=== PATIENT | male | born 1995 | race Caucasian/White ===

== ENCOUNTER 2019-01-25 14:45 | Inpatient (IN) | payer OTHER ==
--- NOTE | 2019-01-25 14:51 | EDPHY ---
H & P Time Seen by Provider: 01/25/19 14:51 Constitutional: Initial Vital Signs Temperature (C) 36.4 C 01/25/19 14:54 Heart Rate 63 01/25/19 14:54 Respiratory Rate 16 01/25/19 14:54 Blood Pressure 113/57 L 01/25/19 14:54 O2 Sat (%) 94 01/25/19 14:54 O2 Delivery Mode Room Air Allergies/Adverse Reactions: No Known Allergies Allergy (Unverified 01/25/19 14:53) Home Medications: Medication Instructions Recorded NK [No Known Home Meds] 01/25/19 Medical Decision Making ED Course/Re-evaluation: CHIEF COMPLAINT: Psychiatric evaluation HISTORY OF PRESENT ILLNESS: The patient is a 23 y/o male arriving via private vehicle for suicidal ideations. For the last 2 years he has had intermittent thought of suicide. The patient presented to [facility] where he expressed the suicidal ideations, and they placed him on a M1 hold. He has never sought treatment for his depression and has never attempted suicide. He denies abusing illicit drugs and last used marijuana 5 months ago. No fever, headache, body aches, lightheadedness, chest pain, heart palpitations, shortness of breath, cough, abdominal pain, urinary or bowel complaints, numbness, paresthesias. REVIEW OF SYSTEMS: A comprehensive 10 system review of systems is otherwise negative aside from elements mentioned in the history of present illness and medical decision making. PHYSICAL EXAM: General Appearance: Alert, well hydrated, appropriate, and non-toxic appearing. Head: Atraumatic without scalp tenderness or obvious injury Eyes: Pupils equal, round, reactive to light and accommodation, EOMI, no trauma , no injection. Ears: Clear bilaterally, no perforation, normal landmarks Nose: Atraumatic, no rhinorrhea, clear. Throat: There is no erythema or exudates, no lesions, normal tonsils, mucus membranes moist. Neck: Supple, 2+ carotid upstroke, nontender, no lymphadenopathy. Respiratory: No retractions, no distress, no wheezes, and no accessory muscle use. Lungs are clear to auscultation bilaterally. Cardiovascular: Regular rate and rhythm, no murmurs, rubs, or gallops. Bilateral carotid, radial, dorsalis pedis, and posterior tibial pulses intact. Good capillary refill all extremities. Gastrointestinal: Abdomen is soft, nontender, non-distended, no masses, no rebound, no guarding, no peritoneal signs. Musculoskeletal: Normal active ROM of all extremities, atraumatic. Neurological: Alert, appropriate, and interactive. The patient has normal DTRs and non-focal cranial nerves, motor, sensory, and cerebellar exam. Skin: No rashes, good turgor, no nodules on palpation. Psych: Flat affect but cooperative. Expresses suicidal ideation. Denies homicidal ideations. Denies hallucinations. Past medical history: Denies Past surgical history: Denies Family history: Denies Social history: Lives in [place], student at , single DIFFERENTIAL DIAGNOSIS: The differential diagnosis for the patient's depression included but was not limited to functional and major depression, situational depression, medication side effect, drugs, and alcohol abuse. MEDICAL DECISION MAKING: The patient is a 23 y/o male arriving via private vehicle for intermittent suicidal ideations for the last 2 years. The patient presented to [facility] today where he expressed the suicidal ideations, and they placed him on a M1 hold. On exam he has a flat affect, expresses suicidal ideations and is cooperative. Patient is in no acute distress and is hemodynamically stable. We are awaiting psychiatric team's evaluation. Patient has known history of psychiatric disorders and is here for evaluation. 2027: Patient has been accepted to [facility]. HAIL signed. - Data Points Laboratory Results: Laboratory Results 01/25/19 14:50 01/25/19 14:50 01/25/19 01/25/19 01/25/19 15:30 14:50 14:50 WBC 5.22 10^3/uL 10^3/uL (3.80-9.50) RBC 5.18 10^6/uL 10^6/uL (4.40-6.38) Hgb 16.0 g/dL g/dL (13.7-17.5) Hct 46.9 % % (40.0-51.0) MCV 90.5 fL fL (81.5-99.8) MCH 30.9 pg pg (27.9-34.1) MCHC 34.1 g/dL g/dL (32.4-36.7) RDW 11.1 % L % (11.5-15.2) Plt Count 183 10^3/uL 10^3/uL (150-400) MPV 11.3 fL fL (8.7-11.7) Neut % (Auto) 64.7 % % (39.3-74.2) Lymph % (Auto) 26.8 % % (15.0-45.0) Jay % (Auto) 7.9 % % (4.5-13.0) Eos % (Auto) 0.0 % L % (0.6-7.6) Baso % (Auto) 0.4 % % (0.3-1.7) Nucleat RBC Rel Count 0.0 % % (0.0-0.2) Absolute Neuts (auto) 3.38 10^3/uL 10^3/uL (1.70-6.50) Absolute Lymphs (auto) 1.40 10^3/uL 10^3/uL (1.00-3.00) Absolute Monos (auto) 0.41 10^3/uL 10^3/uL (0.30-0.80) Absolute Eos (auto) 0.00 10^3/uL L 10^3/uL (0.03-0.40) Absolute Basos (auto) 0.02 10^3/uL 10^3/uL (0.02-0.10) Absolute Nucleated RBC 0.00 10^3/uL 10^3/uL (0-0.01) Immature Gran % 0.2 % % (0.0-1.1) Immature Gran # 0.01 10^3/uL 10^3/uL (0.00-0.10) Sodium 139 mEq/L mEq/L (135-145) Potassium 4.0 mEq/L mEq/L (3.5-5.2) Chloride 105 mEq/L mEq/L (97-110) Carbon Dioxide 24 mEq/l mEq/l (22-31) Anion Gap 10 mEq/L mEq/L (6-14) BUN 15 mg/dL mg/dL (7-23) Creatinine 0.8 mg/dL mg/dL (0.7-1.3) Estimated GFR > 60 Glucose 83 mg/dL mg/dL (70-100) Calcium 10.1 mg/dL mg/dL (8.5-10.4) Salicylates < 1.0 mg/dL L mg/dL (2.0-20.0) Urine Opiates Screen NEGATIVE (NEGATIVE) Acetaminophen < 10 mcg/mL L mcg/mL (10-30) Urine Barbiturates NEGATIVE (NEGATIVE) Ur Phencyclidine Scrn NEGATIVE (NEGATIVE) Ur Amphetamine Screen NEGATIVE (NEGATIVE) U Benzodiazepines Scrn NEGATIVE (NEGATIVE) Urine Cocaine Screen NEGATIVE (NEGATIVE) U Marijuana (THC) Screen NEGATIVE (NEGATIVE) Ethyl Alcohol < 10 mg/dL mg/dL (0-10) Departure - Departure Disposition: [facility] IP Clinical Impression: Suicidal ideation Condition: Fair Report Scribed for: Rico Mccullough Report Scribed by: Katt Morataya Date of Report: 01/25/19 Time of Report: 14:53
[2019-01-25 15:08] LABS: PLATELET COUNT 183 10^3/uL (150-400)
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
--- NOTE | 2019-01-25 20:40 | ASMTTCLDSP ---
TLC Discharge Disposition Disposition: Answers: Admit Disposition Notes: Notes: In consultation with [facility] ED physician, Rico Mccullough MD and on-call psychiatrist, Del Murrieta MD, both concurred that pt appears to meet 27-65 criteria requiring psychiatric hospitalization as pt appears to be at risk of harm to self due to a mental illness condition. Was patient given the Answers: Yes Inpatient Behavioral Health Prohibited Belongings List while in the ED? For inpatient Del Murrieta MD admission, the following psychiatrist agreed to accept patient for admission to Behavioral Health ([facility]): Type of Hold: Answers: M1/72-hour Hold Hold initiated by: Answers: Other Notes: [facility] Therapist Date Signed: 01/25/2019 08:39 PM Electronically Signed By:Shaheen Hankins
[2019-01-25] MEDS ORDERED: LORazepam 0.5 MG TAB PO PRN (23:42)
[2019-01-25] MEDS ORDERED: ACETAMINOPHEN 325 MG TAB PO PRN (23:42)
[2019-01-25] MEDS ORDERED: MAG HYDROX/AL HYDROX/SIMETH 30 ML UDCUP PO PRN (23:42)
[2019-01-25] MEDS ORDERED: NICOTINE POLACRILEX 2 MG GUM B PRN (23:42)
[2019-01-25] MEDS ORDERED: MAGNESIUM HYDROXIDE 30 ML UDCUP PO PRN (23:42)
[2019-01-25] MEDS ORDERED: OLANZapine DISINTEGR 5 MG TAB PO PRN (23:42)
--- NOTE | 2019-01-25 23:48 | ASMTLCPROG ---
Notes Note: Notes: The patient was read their rights @ 20:00. Date Signed: 01/25/2019 11:47 PM Electronically Signed By:Lucretia Le
--- NOTE | 2019-01-26 09:23 | GCON ---
[f rep st] CONSULTATION DATE OF CONSULTATION: 01/26/2019 REFERRING PHYSICIAN: Del Murrieta MD REASON FOR CONSULTATION: Medical evaluation. HISTORY OF PRESENT ILLNESS: A pleasant 23-year-old male with no past medical history, who arrived to the ER last night by private vehicle for suicidal ideations. For the last year and a half reports d epressed mood that was worse this past week. He presented to [facility] expressing s uicidal ideations, but no plan. They placed him on an M1 hold. He says most days his mood is "so-so ", but has been down this past week. This was exacerbated by not doing well on 1 of his physics test s. As of lately, he has been putting school before everything else. Sleeps 4-5 hours a night, is mo re fatigued. He has had decreased p.o. intake, has not lost weight. Says that family dynamics are n ot good. Denies abusing illicit drugs. Last used marijuana 5 months ago. He does not feel like he has a safe place to unwind since his partner, Nguyen, also suffers from depression. REVIEW OF SYSTEMS: I completed a 10-point review of systems, negative except as noted in HPI. PAST MEDICAL HISTORY: None. PAST SURGICAL HISTORY: None. FAMILY HISTORY: No mental illness, cancer, hypertension. 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 He is originally from [place]. Lives with his partner, Nguyen. MEDICATIONS: None. ALLERGIES: None. PHYSICAL EXAMINATION: VITAL SIGNS: Temperature 36.7, blood pressure 111/63, heart rate 60s, respira tion 14, 97% on room air. GENERAL: Well appearing, no acute distress. HEENT: PERRLA. Moist mucou s membranes. CV: Regular rate and rhythm. LUNGS: Clear. ABDOMEN: Soft, nontender, nondistended. Positive bowel sounds. : No May. MUSCULOSKELETAL: 5/5 upper/lower extremity strength. NEUR O: 2 through 12 intact. PSYCH: Alert and oriented x3. Pleasant, answering questions appropriately . LABORATORY DATA: WBC 5, hemoglobin 16, hematocrit 46, platelets 183. Sodium 139, potassium 4, chlor dilma 105, carbon dioxide 24, BUN 15, creatinine 0.8, glucose 60, calcium 10. Urine tox negative. Neg ative alcohol. Negative salicylate and Tylenol. ASSESSMENT AND PLAN: 1. Suicidal ideation: Has been depressed over the past year and not medically treated. Has had int ermittent suicidal ideations, but worse this past week. He will be admitted to [facility] for m anagement per Dr. Murrieta. 2. Diet regular, DVT prophylaxis, ambulatory. DISPOSITION: Thank you for this consultation. Please call if any questions. /[id number]/MODL
--- NOTE | 2019-01-26 10:40 | ASMTBHMTP ---
Master Treatment Plan Master Treatment Plan Answers: Depressed Mood with for: Suicidal Ideation Date: 01/26/2019 Diagnosis on Admission: Major Depressive Disorder, single episode, moderate Expected length of stay: 3-5 Days Reason for admission: Notes: The patient is a 23 y/o male arrived to ED on an M1 Hold for intermittent suicidal ideations for the last 2 years. The patient presented to [facility] today where he expressed the suicidal ideations, and they placed him on a M1 hold. On exam he has a flat affect, expresses suicidal ideations and is cooperative. Pt's affect was flat but per the nurse the pt became angry when told he could not leave the ER until he had been evaluated. The pt told the nurse he was just saying these things to try and get medications quicker Patient's stated presenting problems: Notes: Pt. stated he was "vocalizing suicidal ideation". Patient's goals for treatment: Notes: Pt. stated "to relax". Pt. added he is "very interested in getting a therapist". Patient's strengths: Notes: Pt. reports "resiliance" Identify supports outside of hospital: Notes: Pt. stated his domestic partner, Nguyen, his family (lives in [place]) and Nguyen's family. Discharge criteria: Notes: Suicidal ideation will resolve and patient will have a plan to safely manage recurrent suicidal ideation. Initial disposition plan/considerations: Notes: Pt. plans to return home and continue with school at . Master Treatment Plan Required Signatures Psychiatrist signature: Answers: Psychiatrist: RN on-shift signature: Answers: RN: Patient signature: Answers: Patient: Date Signed: 01/26/2019 10:40 AM Electronically Signed By:Leann Uribe
--- NOTE | 2019-01-26 14:59 | ASMTCMCOM ---
CM Note CM Note Notes: CC met with pt. to complete MTP. Pt. denied any current SI. Pt. reports he is "very interested in getting a therapist". Pt. denied drinking alcohol. Pt. reports smoking THC four months ago, adding he doesn't use THC anymore. Pt. denied all other substance use. Pt. reports this being his first mental health hospitalization. Pt. stated he is open to trying medications. Pt. presents as alert, calm, flat, good eye contact, passive, possibly a bit guarded, and cooperative. Staff report pt. sleeping 7.5 hours. CC to ask pt. to sign an SUSAN for [facility] to secure follow up services. Date Signed: 01/26/2019 02:58 PM Electronically Signed By:Leann Uribe
--- NOTE | 2019-01-26 16:23 | BAPA ---
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 The patient presented to [facility] on 01/25/2019, where he expressed suicidal ideation. They placed him on a mental health hold. The mental health hold reads "Dean endorses active planful thoughts of suicide by hand gun purchase. Dean has researched local gun shops and has hand gun shooting experience. Dean is unable to safety plan, feels highly at risk (8/10) of acting on SI. Dean is overwhelmed by multiple stressors and feels hopeless and helpless, imminent risk of suicide. In the [facility] ED, the patient's affect was flat, but when the nurse told the patient he could not leave, he became angry. The patient told the nurse that he was only saying things to "try to get medications quicker." When this MD met with the patient on the inpatient Behavioral Health Services Unit, he was calm, pleasant, cooperative. He did not endorse currently having any thoughts, plans or intents to hurt himself or anyone else. He minimized his depression. The patient states that he thought he would be able to leave the hospital "after 24 hours." However, this MD spoke with the [facility] dog or animal sitter, Shaheen Hankins, who said he explicitly explained to the patient that he would be on an involuntary commitment for at least 72 hours. The patient states that "I was not really that depressed." He said that he was upset on Monday afternoon because he had just taken an exam that he did not think went very well. He has been struggling academically. Says that he feels like he is performing below his expectation off himself. He says that a big part of his "identity" is being "a very smart student" and he says that he has felt very guilty, helpless, hopeless, sad, depressed, anxious off and on for the last couple of years. The patient says that he has had thoughts of suicide in the past. Says that "I have no plan to act on it." The FIELD ASSESSOR who evaluated the patient at [facility], said the patient disclosed to her or to him a plan to purchase a gun as one way of killing himself. The patient is completely minimizing that here in the hospital. PAST PSYCHIATRIC HISTORY: The patient denies any prior psychiatric symptoms. He denies any history of depression, anxiety, bipolar, schizophrenia, psychosis , substance use. He says he has never made a suicide attempt before. Never had a psychiatric hospitalization. He says he has never seen a psychiatrist before, never taken medication, never seen a counselor or therapist. ALLERGIES: The patient has no known drug allergies currently. CURRENT MEDICATIONS: The patient is currently not taking any medications. LABORATORY DATA: White cell count 5.22, hemoglobin 16.0, hematocrit 46.9, platelet count 183. Sodium 139, potassium 4.0, chloride 105, BUN 15, creatinine 0.8, glucose 83, calcium 10.1. Urine drug screen was negative for all drugs of abuse. PAST MEDICAL HISTORY: The patient denies any chronic medical issues. No acute physical symptoms. No prior surgical history. SOCIAL HISTORY: The patient says that "I grew up in a family." His parents are . His father lives in [place]. His mother lives in [place]. He has 3 brothers, 24, 18 and 15 years old. The patient reports that his 24-year-old brother was placed on an involuntary mental health hold in the state of [place] and diagnosed with bipolar disorder. He does not say when that occurred. The patient reports that he is currently in a domestic partnership. No children. He lives with his partner in an apartment in [place]. He says that other than his partner, he only has 1 close friend, has very limited social support here in [place]. He is a sophomore at , majoring in physics and applied math. FAMILY HISTORY: He denies a family history of mental illness or substance use. SUBSTANCE USE HISTORY: The patient states that he does not use drugs or alcohol , except for smoking marijuana. He said he started using marijuana 5 months ago. Does not say how often he uses or how much he uses. TRAUMA HISTORY: Patient denies history of physical, emotional, or sexual abuse. LEGAL HISTORY: Patient has no known legal issues. MENTAL STATUS EXAMINATION: This is an average height, thin, appropriately groomed male sitting in a chair, wearing jeans and a triana sweater. He is alert and oriented x4. His affect is flat. His demeanor is appropriate. He makes good eye contact. His speech rate and volume are normal. His intellectual function appears to be above average based upon his vocabulary, fund of knowledge, and educational history. He denies currently feeling sad, helpless, hopeless, worthless, and anxious although his presenting symptom was depression and with suicidal ideation. Today he denies any thoughts, plans or intents to hurt himself or anyone else. He minimizes his plan to buy a gun, which he disclosed to the [facility] at [facility]. He denies any symptoms of psychosis. He has no symptoms of ulises. There is no evidence of pressured speech, racing thoughts, grandiose delusions. He does not have elevated or elated mood. His thought process is linear and goal directed. His insight and judgment are both impaired, as evidenced by his own report of off and on depression for 2 years with frequent suicidal ideation and not seeking treatment. IMPRESSION: 1. Major depressive disorder, recurrent, severe, without psychotic features. 2. Cannabis use disorder, unknown severity. 3. Lack of social support, academic stressors, family lives out of state. PLAN: 1. Admit patient to the inpatient Behavioral Services unit on [address] on an M1 hold. 2. Monitor closely for safety. The patient is not currently exhibiting any signs of unsafe behavior. He is acting appropriately and he denies any thoughts , plans or intents to hurt himself or anyone else. However, the patient did disclose a plan to purchase a firearm and shoot himself on the day he was admitted. 3. We will continue to monitor and observe the patient. This MD did speak with the patient about the possibility of starting an antidepressant medication. Reviewed the risks, benefits, and side effects for class of medications, including the SSRIs, of which, this MD gave the patient a drug information handout on Igg[facility]. The patient stated that he was in "no hurry" to start antidepressant medications and he thought he would be "fine to wait a month if I have to" to see an outpatient provider and get started on the medication outside of the hospital. When MD explained that the patient will be in the hospital for 72 hours on an involuntary hold and suggested starting the antidepressant medications sooner so that it could start working earlier, the patient became upset. He became more guarded, withdrawn and started to try to minimize his symptoms in the hope that the MD would discharge him sooner. 4. Estimated length of stay is 72 hours. /[id number]/MODL JENNIFER
--- NOTE | 2019-01-27 15:48 | ASMTBHDC ---
Notes Note: Notes: Pt. reports "doing a lot better", reporting he is "lot more relaxed" and "had a lot of rest". Pt. report having "very little sleep for several weeks" adding he was getting 4-5 hours per night. Pt. report sleeping "very good" here, adding he might have gotten 10 hours of sleep. Pt. reports getting enough to eat. Pt. stated he "will follow up my psychiartist" about medications. Pt. stated he sees Rayna at [facility]. Pt. reports recently having trouble concentrating. Pt. stated his girlfriend has "bouts of depression" adding she suffers from anxiety and is having an "identity crisis". Pt. stated he is the sole support of his partner, adding she has no friends, pt/ stated he has to "carry her emotional debt". Pt. stated he is interested in couples therapy. Pt. stated he "can't emotionally take someone else's burdens". Pt. stated he recharges by playing guitar, hiking, taking walks, and playing basketball. Pt. reports he "bury my emotions". Pt. stated he has [employer] insurance and goes to [facility]. Pt. reports not having a therapist yet, and wanting both individual and couples therapy. Pt. stated his girlfriend also attends . Pt. reports concern about upcoming bills he needs to pay. Pt. stated he thinks he would "feel a lot better at home". Pt. denied SI, HI, AVH and paranoia. Pt. reports he completed his safety plan. Pt. presents as alert, calm, recently showered, having more affect compared to yesterday, polite, talkative, and cooperative. Staff report pt. sleeping 8.5 hours, not having any medications to take and being withdrawn to his room. Pt. signed SUSAN for [facility]. CC to reach out to [facility] to schedule a follow up appointment with psychiatrist Rayna, and to set up individual and couples therapy. Pt. will need a doctor's note for his discharge. Date Signed: 01/27/2019 03:47 PM Electronically Signed By:Leann Uribe
--- NOTE | 2019-01-27 15:54 | ASMTBHDC ---
Notes Note: Notes: Per pt's M1 hold "Dean endorses active, planful thoughts of suicide by hand gun purchase. Dean has researched local gun shops and has handgun shooting experience. Dean is unable to safely plan, feels highly at risk (8/10) of action on SI. Dean is overwhelmed bu multiple stressors and feeling hopeless and helpless. imminent risk of suicide". Staff spoke with pt's partner, Nguyen, who stated there are no guns in their home and she is against guns in her home. CC and provider to follow up about pt's access to guns. Date Signed: 01/27/2019 03:54 PM Electronically Signed By:Leann Uribe
--- NOTE | 2019-01-27 18:50 | SOAPPROG ---
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 Patient is now minimizing his intent and says it was all a "misunderstanding" that he never actually intended to kill himself. WEEKEND PLAN: 01/27/19 18:46 1. Patient reviewed drug information handout about Prozac. MD answered patient' s questions regarding AD meds and Prozac in particular. Patient said he preferred to wait and talk to outpatient prescriber before starting any psych meds. He said he didn't want to start a medicine in hospital. 2. Patient says he doesn't feel any different than yesterday. He denies feeling sad, depressed, helpless, hopeless, anxious or scared. He denies any thought, plan or intent to hurt himself or anyone else. 3. Patient agrees to see therapist through [facility] to help deal with stress in his life. 4. [facility] expires tomorrow. Subjective: Patient is sitting in his bed reading a book. He denies feeling depressed or suicidal. He says he has no plan or intent to hurt himself. He claims the crisis counselor at [facility] misunderstood him. He claims he knows how to use guns, but did not have intent to purchase one to shoot himself. Staff spoke to patient's domestic partner, Nguyen. She said there are no firearms in their home b /c she is against all guns. Patient says his partner suffers from depression and he feels like he has to support her "emotional burden." Patient says he wants to wait to start medication until after he sees outpatient prescriber. He says he wants more time to consider a "variety of choices" and see "what med best suits my needs." Objective: Vital Signs Temp Pulse Resp BP Pulse Ox 36.5 C 73 14 94/56 L 96 01/27/19 06:00 01/27/19 06:00 01/27/19 06:00 01/27/19 06:00 01/27/19 06:00 MSE: Affect: Euthymic Mood: "OK" TP: Linear, goal-directed TC: Denies any SI/ HI, no paranoia Insight/Judgment: Poor - Time Spent With Patient Time Spent With Patient: 20" - Pending Discharge Pending Discharge Within 24 Hours: Yes Pending Discharge Date: 01/28/19 (Likely to d/c when hold expires) Pending Discharge Time: 11:00 ICD10 Worksheet Patient Problems: Problems Problem Status Onset Suicidal ideation Acute
[2019-01-28 07:20] VITALS: BP 107/59
--- NOTE | 2019-01-28 11:19 | ASMTBHDC ---
Notes Note: Notes: CC was able to confirm follow up atps: Follow up with: [facility], [address] ([id number]) [address] [place] [address], [place] [address] CM APT: MondayJanuary 29, (01/29/19) at 11am with Xuan. (Check in first). Date Signed: 01/28/2019 11:19 AM Electronically Signed By:Puma Talbot
--- NOTE | 2019-01-28 15:59 | BDS ---
[f rep st] BEHAVIORAL HEALTH DISCHARGE SUMMARY REASON FOR ADMISSION: From the ED note dated 01/25/2019, patient arrived by private vehicle due to suicidal ideations. Patient reported over the last 2 years he has had intermittent thoughts of suicide. Patient presented to the [facility] and expressed suicidal ideations and patient was placed on an M1 hold. Patient was admitted involuntarily ad on an M1 hold due to being a danger to himself. The patient was admitted for safety, crisis stabilization, and medication management. ADMITTING DIAGNOSES: Major depressive disorder, severe. ADMISSION PHYSICAL EXAM: Patient was seen on 01/26/2019, for an H and P consultation for medical clearance for inpatient psychiatric hospitalization and treatment. Patient was medically cleared for inpatient psychiatric hospitalization and treatment. For further details, please refer to consultation document dated 01/26/2019. ADMISSION LABORATORY: 1. CBC within normal limits, except RDW was low at 11.1, eosinophils low at 0.0 absolute eosinophils low at 0.00. 2. BMP within normal limits. 3. Hemoglobin A1c is pending. 4. Liver function within normal limits, except total bilirubin was elevated at 2.5, unconjugated bilirubin was elevated at 2.0, and albumin was elevated at 5.1. 5. Lipid panel within normal limits. 6. Toxicology screen negative for all substances screen and negative for ethyl alcohol. MAJOR PROCEDURES OR TESTS: None. HOSPITAL COURSE: The most prominent symptoms and behaviors while the patient was here were reports of moderate anxiety and depression. Patient was also withdrawn, spent a lot of time in his room, and withdrawn from social interactions. Treatment modalities utilized were milieu and group therapy. Patient has improved considerably with no signs of psychiatric symptoms and no psychiatric symptoms expressed. Patient reports he has improved since admission , states to be in stable condition, feels safe to discharge, and he contracts for safety. Patients response to treatment was good. There were no adverse or unexpected results of treatment. The patient was safe throughout stay, active in treatment, engaged in groups, and was appropriate with staff. Patient met with treatment team prior to discharge to assess readiness to discharge and review discharge plan. The treatment team consensus is the patient in stable condition, has a safe discharge plan, and is ready to discharge today. CONDITION AT DISCHARGE: Patient is in stable condition and is no longer a danger to self or others, and is not gravely disabled due to mental illness. Patient is no longer in need of inpatient level of care, and can be safely and effectively treated within the community. The patients level of risk at time of discharge is low. MSE: The patient is casually dressed and with good hygiene , and looks stated age. Patient is sitting, posture is upright, and position is relaxed. Patient appears awake, alert, and responds appropriately and reasonably during interview. Patient is engaged, relates well to interviewer, and emotional facial expression is appropriate to situation and changes appropriately with topic. Patient is cooperative, makes comfortable eye contact , and movements are voluntary, deliberate, coordinated, and smooth and even with no inappropriate movements. Patient makes laryngeal sounds effortlessly and shares conversation appropriately; pace of conversation is appropriate, and stream of talking is fluent; articulation is clear and understandable; word choice is effortless and appropriate for education level; completes sentences, occasionally pausing to think; rate and volume are appropriate for interview and setting. Patient reports mood as euthymic. Patients affect is stable with full variable range, congruent with mood, and appropriate to speech and circumstances. Patient has linear and logical thinking, with no loose associations, tangential thought, thought blocking, concrete thinking, or any other signs of formal thought disorder. Patient denies suicidal and homicidal ideation, and denies hallucinations and delusions. Patient appears to be a reliable historian with sound judgement and good insight into current condition. Patient has no apparent dysfunction in recent or remote memory noted , and no evidence of gross cognitive dysfunction noted at any point during the interview. DISCHARGE DIAGNOSIS: Major depressive disorder, severe. CURRENT MEDICATIONS: After reviewing options, risks, and benefits with the patient, patient reports he plans to follow up on an outpatient basis for ongoing medication evaluation. DISPOSITION: Patient left hospital independently and voluntarily with plans to return to his apartment and return to his classes at [employer]. FOLLOWUP: community health coordinator reports the appropriate outpatient follow-up services have been established and outpatient appointments have been scheduled. The patient received written instructions with times and dates of outpatient follow-up appointments. The following follow-up recommendations were provided to the patient at discharge: Continue psychotropic medications as prescribed and attend appointments as scheduled. Report any side effects to a psychiatric outpatient provider, a primary care provider, or other health hospice spiritual care coordinator. Address any questions or problems concerning the psychotropic medications with a psychiatric outpatient provider, a primary care provider, or other health hospice spiritual care coordinator. Contact [facility] or [facility], or go to the nearest emergency room, if you are ever a danger to yourself/others, or unable to care for yourself. As soon as possible, establish a routine medication management treatment with a psychiatric provider, establish routine therapy appointments, and follow-up with a primary care provider. LEGAL COURSE: Patient was admitted on an M1 hold for involuntary inpatient psychiatric hospitalization. Patient discharged today independently and voluntarily. ATTITUDE TIME OF DISCHARGE: The patients attitude was positive at time of discharge, and patient reports looking forward to discharging today. The patient reports he feels safe to discharge, is no longer a danger to himself or others, is in stable condition, and contracts for safety. Patient states he will continue medications as prescribed, and establish medication management treatment with an outpatient provider after discharge. Patient reports he understands the information that has been provided to him, and he understands, accepts, and agrees to psychotropic medications. Patient describes internal protective factors as the coping skills he has learned while hospitalized here, and he plans to continue to practice these coping skills after discharge. LABORATORY AND STUDIES: There were no pending labs or studies at time of discharge. ADVANCED DIRECTIVES: There were no advance directives on file, and patient was full code during this hospitalization. The following psychotropic medication treatment informed consent and recommendations were provided to the patient at time of discharge. Patient reports he understands, accepts, and agrees to the information that has been provided. PSYCHOTROPIC MEDICATION TREATMENT INFORMED CONSENT and RECOMMENDATIONS: Review nature of condition, diagnosis, and prognosis. Review nature and purpose of psychotropic medication treatment. Review type of psychotropic medications being prescribed. Review risk and benefits of psychotropic medication treatment. Review probable length of time will need to take medications. Review risk and benefits of not undergoing psychotropic medication treatment. Review alternative treatments to psychotropic medications. Review psychotropic medications contraindications, side effects, and importance of reporting any side effects to a psychiatric provider, primary care provider, or other health hospice spiritual care coordinator. Review importance of asking a psychiatric provider or primary care provider any questions or problems concerning the psychotropic medications. Review safety plan and the importance to contact [facility] or 1 , or go to the nearest emergency room, if ever a danger to yourself/others, or unable to care for yourself. Recommend upon discharge to establish routine medication management treatment with a psychiatric provider, establish routine therapy appointments, and follow-up with a primary care provider. Verify patient understands, accepts, and agrees to the information that has been provided. /[id number]/MODL MTDD
== END 2019-01-28 13:10 | disposition home or self-care (01) | DRG 885 ==
LOC: BBEH 21:13
PROVIDERS: ADMIT Psychiatry & Neurology Psychiatry; ATTEND Psychiatry & Neurology Psychiatry
DX: F33.2 Major depressive disorder, recurrent severe without psychotic features (principal); R45.851 Suicidal ideations; F12.90 Cannabis use, unspecified, uncomplicated
CPT/HCPCS: 80305; G0480